=== PATIENT | female | born 1970 | race Hispanic/Latino ===

== ENCOUNTER 2022-04-12 06:33 | Day surgery (SDC) | payer OTHER ==
[2022-04-08 13:42] VITALS: BMI 31.8
[2022-04-12] MEDS ORDERED: PROPOFOL 40 ML ONE (07:02)
[2022-04-12] MEDS ORDERED: Lidocaine 2% MPF 10 ML AMP (For Epidural Use) ONE (08:41)
== END 2022-04-12 09:18 | disposition home or self-care (01) ==
LOC: CSHSDC 06:33
PROVIDERS: ATTEND Internal Medicine Gastroenterology
PROC: 0DJD8ZZ Inspection of Lower Intestinal Tract, Via Natural or Artificial Opening Endoscopic (ICD-10-PCS; principal; 2022-04-12)
DX: Z12.11 Encounter for screening for malignant neoplasm of colon (principal); K64.8 Other hemorrhoids; E66.9 Obesity, unspecified; Z68.31 Body mass index [BMI] 31.0-31.9, adult
CPT/HCPCS: J2704